=== PATIENT | female | born 1950 | race Caucasian/White ===

== ENCOUNTER 2024-04-27 09:07 | Outpatient (CLI) | payer MEDICARE | END 2024-04-27 09:08 | disposition home or self-care (01) | LOC: CSHDTY/OP 09:07 | PROVIDERS: ATTEND Internal Medicine Endocrinology, Diabetes & Metabolism | DX: E11.65 Type 2 diabetes mellitus with hyperglycemia (principal); E78.5 Hyperlipidemia, unspecified | CPT/HCPCS: 97802 ==

== ENCOUNTER 2024-05-20 10:22 | Outpatient (CLI) | payer MEDICARE | END 2024-05-20 10:23 | disposition home or self-care (01) | LOC: CSHCT 10:22 | PROVIDERS: ATTEND Orthopaedic Surgery | DX: Z01.818 Encounter for other preprocedural examination (principal); M17.12 Unilateral primary osteoarthritis, left knee ==